=== PATIENT | female | born 1980 ===

== ENCOUNTER 2016-12-07 14:38 | Emergency (ER) | payer OTHER ==
[2016-12-07 15:09] VITALS: RESP 16; TEMP 97.8
[2016-12-07 15:33] VITALS: BP 127/78; PULSE 78; O2SAT 98
== END 2016-12-07 15:40 | disposition home or self-care (01) ==
LOC: ED 14:38
DX: L02.31 Cutaneous abscess of buttock (principal); B95.8 Unspecified staphylococcus as the cause of diseases classified elsewhere; L03.317 Cellulitis of buttock
CPT/HCPCS: 99282; 99283; A6402

== ENCOUNTER 2018-09-07 10:06 | Emergency (ER) | payer BC, OTHER ==
[2018-09-07 10:07] VITALS: O2SAT 98
[2018-09-07 10:26] VITALS: RESP 20; TEMP 96.7
[2018-09-07] MEDS ORDERED: DIAZEPAM 5 MG TAB PO ONE (10:47)
[2018-09-07] MEDS ORDERED: SOLUMEDROL 125 MG/2 ML 125 MG/2 ML PDS IM ONE (10:47)
[2018-09-07 10:48] VITALS: BP 144/94; PULSE 81
[2018-09-07] MEDS ORDERED: SOLUMEDROL 125 MG/2 ML 125 MG/2 ML PDS ONE (10:53)
[2018-09-07] MEDS ORDERED: DIAZEPAM 5 MG TAB ONE (10:53)
== END 2018-09-07 11:29 | disposition home or self-care (01) ==
LOC: ED 10:06
DX: M62.830 Muscle spasm of back (principal); E11.9 Type 2 diabetes mellitus without complications
CPT/HCPCS: 96372; 99283; J2930; A9270-GY

== ENCOUNTER 2019-04-26 05:19 | Emergency (ER) | payer OTHER ==
[2019-04-26 05:30] VITALS: TEMP 97.7
[2019-04-26 05:39] LABS: BASOPHILS % (AUTO) 1 % (0-3); EOSINOPHILS % (AUTO) 1 % (0-9); HEMATOCRIT 32 % (35-47); HEMOGLOBIN 10.5 gm/dl (12.0-15.5); LYMPHOCYTES % (AUTO) 29.9 % (10-50); MEAN CORPUSCULAR HEMOGLOBIN 27.8 pg (27.0-32.0); MEAN CORPUSCULAR HGB CONC 32.5 gm/dl (32.0-36.0); MEAN CORPUSCULAR VOLUME 85 fL (81-99); MONOCYTES % (AUTO) 7.1 % (0-12); NEUTROPHILS % (AUTO) 61.5 % (37-80)
[2019-04-26 05:59] LABS: ALBUMIN 3.3 gm/dl (3.4-5.0); BILIRUBIN,TOTAL 0.2 mg/dl (0.2-1.0); CALCIUM 8.7 mg/dl (8.5-10.1); CARBON DIOXIDE 29.1 mEq/L (21-32); CREATININE 0.98 mg/dl (0.60-1.00); TOTAL PROTEIN 7.2 gm/dl (6.4-8.2)
[2019-04-26] MEDS ORDERED: SODIUM CHLORIDE 0.9% 1000ML 1,000 ML IV ONE (07:54)
[2019-04-26 08:36] LABS: APPEARANCE,URINE Clear; BILIRUBIN,URINE NEGATIVE (NEGATIVE); COLOR,URINE Yellow; GLUCOSE, URINE (UA) 2+ (NEGATIVE); KETONES,URINE 1+ (NEGATIVE); LEUKOCYTE ESTERASE ,URINE NEGATIVE (NEGATIVE); NITRATE,URINE NEGATIVE (NEGATIVE); OCCULT BLOOD,URINE TRACE INTACT (NEG-TRACE); PH,URINE 6.5
[2019-04-26 08:43] LABS: AMPHETAMINES NEGATIVE (NEGATIVE); BARBITUATES NEGATIVE (NEGATIVE); BENZODIAZEPINES NEGATIVE (NEGATIVE); CANNABINOL(THC) NEGATIVE (NEGATIVE); COCAINE(COC) NEGATIVE (NEGATIVE); METHAMPHETAMINES POSITIVE (NEGATIVE); OPIATES(OPI) NEGATIVE (NEGATIVE); OXYCODONE(OXY) NEGATIVE (NEGATIVE); PROPOXYPHENE(PPX) NEGATIVE (NEGATIVE)
[2019-04-26 08:46] LABS: RBC,URINE 0-3 (0-3AV/HPF)
[2019-04-26 08:47] LABS: BACTERIA NEGATIVE (< 1+); CRYSTALS NEGATIVE (0-3 AVE/HPF); WBC,URINE 0-2 (0-5AV/HPF)
[2019-04-26 10:07] VITALS: RESP 18
[2019-04-26 10:11] VITALS: BP 153/86; PULSE 72; O2SAT 100
== END 2019-04-26 10:27 | disposition short-term general hospital (02) ==
LOC: ED 05:19
DX: R56.9 Unspecified convulsions (principal); E11.9 Type 2 diabetes mellitus without complications; Z79.1 Long term (current) use of non-steroidal anti-inflammatories (NSAID); R40.2352 Coma scale, best motor response, localizes pain, at arrival to emergency department; R40.2142 Coma scale, eyes open, spontaneous, at arrival to emergency department; R40.2242 Coma scale, best verbal response, confused conversation, at arrival to emergency department; R29.707 NIHSS score 7
CPT/HCPCS: 36415; 70450; 70496; 80053; 80305; 80307; 81001; 85025; 96365; 96366; 99284; 99285; Q9967